=== PATIENT | male | born 1975 | race Caucasian/White ===

== ENCOUNTER 2018-11-21 14:15 | Emergency (ER) | payer MEDICAID ==
[~2018-11-21] VITALS: Ht 188 cm; Wt 115.0 kg
[~2018-11-21 14:15] MED LIST: MUPI15CR TP
[2018-11-21 14:18] VITALS: BP 131/95
[2018-11-21] MEDS ORDERED: LIDOcaine 5% patch TP STA (14:30)
[2018-11-21] MEDS ORDERED: TRAM50TA2 PO (14:45)
== END 2018-11-21 14:51 | disposition home or self-care (01) ==
LOC: ER 14:15
DX: M25.511 Pain in right shoulder (principal); M54.2 Cervicalgia; Z86.14 Personal history of Methicillin resistant Staphylococcus aureus infection; Z98.890 Other specified postprocedural states; Z79.899 Other long term (current) drug therapy
CPT/HCPCS: 99283